=== PATIENT | female | born 1965 | race Caucasian/White ===

== ENCOUNTER 2018-10-08 09:15 | Emergency (ER) | payer OTHER ==
[2018-10-08 09:27] VITALS: BP 138/76
--- NOTE | 2018-10-08 09:50 | UC ---
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 Took advil cold and sinus x1 and felt better." -she is on plaquenil and a DMARD and is told to get treated w/ abx when she is sick with these sx. she gets a sinusitis around this time every year. has pain/ pressure over cheeks and forehead. -amox has not been helpful in past and thinks she was tretaed w/ erythrmoycin in past but not sure. - History of Current Complaint Chief Complaint: UCGeneralIllness Stated Complaint: SINUS COMPLAINT Time Seen by Provider: 10/08/18 09:46 Pain Intensity: 0 - Allergies/Home Medications Allergies/Adverse Reactions: Allergies Allergy/AdvReac Type Severity Reaction Status Date / Time Sulfa (Sulfonamide Allergy Intermediate Rash Verified 10/08/18 09:27 Antibiotics) PMH/Surg Hx/FS Hx/Imm Hx Previously Healthy: Yes - + rheumatoid arthritis - Surgical History Surgical History: Yes Surgery Procedure, Year, and Place: 2000 HYSTERECTOMY, [facility]. 2007 BLADDER SLING, [facility]. 05/2013 BIOPSY LEFT FOOT, OFFICE - Social History Alcohol Use: None Substance Use Type: None Smoking Status (MU): Never Smoked Tobacco Review of Systems All Other Systems Reviewed And Are Negative: Yes Constitutional: Positive: Negative Skin: Positive: Negative Eyes: Positive: Negative ENT: Positive: Nasal Discharge, Sinus Pain/Tenderness Respiratory: Positive: Negative Cardiovascular: Positive: Negative Gastrointestinal: Positive: Negative Genitourinary: Positive: Negative Motor: Positive: Negative Neurovascular: Positive: Negative Musculoskeletal: Positive: Negative Neurological: Positive: Negative Psychological: Positive: Negative Is Patient Immunocompromised?: Yes - plaquenil Physical Exam Triage Information Reviewed: Yes Appearance: Well-Appearing, No Pain Distress, Well-Nourished Vital Signs: Initial Vital Signs Temp 97.8 F 10/08/18 09:24 Pulse 80 10/08/18 09:24 Resp 16 10/08/18 09:24 BP 138/76 10/08/18 09:24 Pulse Ox 98 10/08/18 09:24 Eye Exam: Normal ENT: Positive: Pharyngeal erythema - +PND., Nasal congestion, Nasal drainage, TMs normal, Sinus tenderness, Uvula midline. Negative: TM bulging, TM dull, TM red, Tonsillar swelling Dental Exam: Normal Neck exam: Normal Neck: Positive: Supple, Nontender, No Lymphadenopathy Respiratory Exam: Normal Respiratory: Positive: Lungs clear, Normal breath sounds, No respiratory distress, No accessory muscle use. Negative: Crackles, Rhonchi, Stridor, Wheezing Cardiovascular Exam: Normal Cardiovascular: Positive: RRR Abdominal Exam: Normal Abdomen Description: Positive: Nontender, Soft Musculoskeletal Exam: Normal Neurological Exam: Normal Psychological Exam: Normal Skin Exam: Normal Throat Pain/Nasal Course/Dx - Course Course Of Treatment: treatingw / abx due to the fact that she is immunocpompromised on a DMARD and plaquenil. - Differential Dx/Diagnosis Differential Diagnosis/HQI/PQRI: Pharyngitis, Sinusitis, URI Provider Diagnosis: Sinusitis Discharge - Sign-Out/Discharge Documenting (check all that apply): Patient Departure All imaging exams completed and their final reports reviewed: No Studies - Discharge Plan Condition: Stable Disposition: HOME Prescriptions: Amoxicillin/Clavulanate TAB* [Augmentin TAB 875*] 875 mg PO BID #20 tab Patient Education Materials: Sinusitis (ED) Referrals: Kamini العلي PA [Primary Care Provider] - 5 Days Additional Instructions: Make sure to take a probiotic daily while on antibiotics to help prevent a potential complication of antibiotic use called c diff. Some well known brands that can be found OTC are florastor, align and [employer]. Make sure to complete the entire prescription unless advised otherwise by your health care provider. - Billing Disposition and Condition Condition: STABLE Disposition: Home
== END 2018-10-08 10:02 | disposition home or self-care (01) ==
LOC: UCCORT 09:15
DX: J32.9 Chronic sinusitis, unspecified (principal); M06.9 Rheumatoid arthritis, unspecified; Z79.899 Other long term (current) drug therapy; Z88.2 Allergy status to sulfonamides
CPT/HCPCS: 99202; G0463